=== PATIENT | male | born 1960 | race Caucasian/White ===

== ENCOUNTER 2019-01-07 09:30 | Day surgery (SDC) | payer BC ==
[2019-01-07] VITALS (8 sets, daily range): BP systolic 103–126; BP diastolic 65–73; PULSE 56–66; RESP 8–20; Ht 177.8 cm; Wt 69.3 kg
[~2019-01-07] VITALS: Ht 177.8 cm; Wt 69.3 kg
[~2019-01-07 09:30] MED LIST: ACETAMINOPHEN 500 MG TAB PO ONE; CEFAZOLIN 2 GM/50 ML (PMX) 50 ML IVPB SCH
[2019-01-07] MEDS ORDERED: ATOR40TA68 PO (10:28)
[2019-01-07] MEDS ORDERED: OMEG-158 PO (10:28)
[2019-01-07] MEDS ORDERED: ASPI81TA52 PO (10:28)
--- NOTE | 2019-01-07 10:35 | PREAC ---
Date/Time of Note Date/Time of Note DATE: 01/07/19 TIME: 10:32 Anesthesia Eval and Record Evaluation Time Pre-Procedure Interview DATE: 01/07/19 TIME: 10:32 Age 58 Sex male NPO: 8 hrs Preoperative diagnosis left thumb foreign body Planned procedure left thumb foreign body excision Past Medical History Past Medical History: Includes Cardio: Dyslipidemia Pulm: Smoking Hx, COPD Surgery & Anesthesia Issues Other issues Meds Anticoagulation: Yes Beta Soraya within 24 hr: No Reason Beta Soraya not given: Pt. not on B-Soraya Reported Medications Calhoun-3/Dha/Epa/Fish Oil (FISH OIL 1,000 MG SOFTGEL) 1 Each Capsule, 1 EACH PO DAILY, CAP 01/07/19 Aspirin (Low Dose Aspirin) 81 Mg Tablet.dr, 81 MG PO DAILY, #30 TAB 01/07/19 Atorvastatin* (Atorvastatin*) 40 Mg Tablet, 40 MG PO QHS, #30 TAB 01/07/19 Current Medications Cefazolin Sodium/ Dextrose 50 ml @ 100 mls/hr PRE-OP IVPB ; Start 01/07/19 at 06:00; Stop 01/07/19 at 15:00 Meds reviewed: Yes Allergies Coded Allergies: No Known Allergy (Unverified , 01/07/19) Allergies Reviewed: Yes Labs/Studies Labs Reviewed: Reviewed by anesthesiologist test: N/A Pre-procedure Exam Last vitals Vital Signs Date Temp Pulse Resp B/P (MAP) Pulse Ox O2 O2 Flow FiO2 Time Delivery Rate 01/07/19 97.4 63 16 103/65 98 09:40 (78) Airway: Adequate mouth opening, Adequate thyromental dist Mallampati: Mallampati II Teeth: Normal Lung: Normal Heart: Normal ASA Physical Status ASA physical status: 2 Emergency: None Planned Anesthetic General/MAC: MAC Planned Pain Management Local by surgeon Pre-operative Attestations Prior to commencing anesthesia and surgery, the patient was re-evaluated, there was verification of: *The patient's identity *The results of appropriate recent lab work and preoperative vital signs *The above evaluation not changing prior to induction *Anesthetic plan, risk benefits, alternative and complications discussed with patient/family; questions answered; patient/family understands, accepts and wishes to proceed. RUBIO THOMPSON Jan 07, 2019 10:35
--- NOTE | 2019-01-07 10:54 | HPN ---
Date/Time of Note Date/Time of Note DATE: 01/07/19 TIME: 10:54 Interval H&P Admission Note Pt. seen H&P reviewed: No system changes ANA CRONIN MD Jan 07, 2019 10:54
[2019-01-07] MEDS ORDERED: KETOROLAC 15 MG INJ IV PRN (11:00)
[2019-01-07] MEDS ORDERED: ONDANSETRON 4 MG INJ IV PRN (11:00)
[2019-01-07] MEDS ORDERED: METOCLOPRAMIDE 10 MG INJ IV PRN (11:00)
[2019-01-07] MEDS ORDERED: ALBUTEROL 0.083% (NEB) 2.5 MG/3 ML AMP HHN PRN (11:00)
[2019-01-07] MEDS ORDERED: BUPIVACAINE 0.25% (MPF) 30 ML INJ ONE (11:03)
[2019-01-07] MEDS ORDERED: LIDOCAINE 1% (MPF) 30 ML INJ ONE (11:03)
[2019-01-07] MEDS ORDERED: KETOROLAC 30 MG INJ ONE (11:18)
[2019-01-07] MEDS ORDERED: BUPIVACAINE 0.25% (MPF) 30 ML INJ INJ ONE (11:25)
[2019-01-07] MEDS ORDERED: LIDOCAINE 1% (MPF) 30 ML INJ INJ ONE (11:25)
--- NOTE | 2019-01-07 11:55 | OPR ---
Date/Time of Note Date/Time of Note DATE: 01/07/19 TIME: 11:47 Operative Report Procedure Date: Jan 07, 2019 Preoperative Diagnosis Left thumb foreign body Postoperative Diagnosis Left thumb foreign body Operation/Procedure Performed Left thumb foreign body removal Surgeon see signature line Transit Planning Director None Anesthesia Type: other (Loca) Tourniquet Time: 7 minutes Estimated Blood Loss: none Transfusion none Specimen foreign body and skin Grafts/Implants none Tubes/Drains none Complications none Pt Condition Post Procedure: stable Indications Patient is a 58-year-old iaozl-kubz-yxbivemt male who got a splinter stuck in his left thumb approximately 3 months ago. It is painful and swells. Radiographs demonstrated a possible foreign body along the volar aspect of the thumb. Ultrasound was not diagnostic. We discussed doing a foreign body removal. No guarantees were made that the foreign body could be found. Risks of surgery include but not limited to infection, pain, bleeding, neurovascular injury, stiffness, swelling, inabilit to remove the foreign body and other anesthesia related risks. Patient elects to proceed. Procedure Description Patient was identified in preoperative holding area. Upper extremity was marked. He is brought back to operating room. He is placed supine. A nonsterile tourniquet was applied left arm. Timeout was performed indicating correct patient site and procedure. 0.25% Marcaine and 1% lidocaine was injected into the left thumb for digital block. At the left arm was then prepped and draped in usual sterile fashion. Arm was examined with aid with Esmarch and tourniquet was elevated to 250 minutes mercury. There is a small, raised area over the pulp of the thumb just distal to the IP joint on the ulnar border which is thought to be the presumed entrance wound of the foreign body. A slightly oblique incision was marked out over this raised area. Skin was incised sharply with a scalpel. The ulnar digital neurovascular bundle was identified and retracted ulnarly. Blunt dissection was performed down through the septae and subcutaneous tissue down to the flexor tendon sheath. I did not find any foreign body within the depth of the wound. Just under the dermal layer, however, I did find what appeared to be a very small splinter measuring approximately 3-4 mm in length. This is embedded just under the dermal layer. This was removed and set aside for pathology. The hyperkeratotic skin was also ellipsed out. The wound was irrigated. The tourniquet was released. Hemostasis was achieved with bipolar cautery. Skin was closed with interrupted 4-0 nylon suture, horizontal mattress fashion. Xeroform, 4 x 4 gauze, Jennifer, and Coban dressing was applied. Patient tolerated the procedure well with no complications. He had brisk capillary refill in the fingers and all sponge and instrument counts were correct at the end of the case. ANA CRONIN MD Jan 07, 2019 11:55
--- NOTE | 2019-01-07 11:56 | SIPON ---
Date/Time of Note Date/Time of Note DATE: 01/07/19 TIME: 11:55 Operative Report Preoperative Diagnosis Left thumb foreign body Postoperative Diagnosis Left thumb foreign body Operation/Procedure Performed Left thumb foreign body removal Surgeon see signature line library technical assistant None Anesthesia: other Estimated blood loss: none Transfusion Required none Specimen foreign body and skin Grafts/Implants none Complications none ANA CRONIN MD Jan 07, 2019 11:56
--- NOTE | 2019-01-08 10:46 | PAC ---
Date/Time of Note Date/Time of Note DATE: 01/08/19 TIME: 10:46 Post-Anesthesia Notes Post-Anesthesia Note Last documented vital signs Vital Signs Date Temp Pulse Resp B/P (MAP) Pulse Ox O2 O2 Flow FiO2 Time Delivery Rate 01/07/19 97.4 60 16 124/70 99 Room Air 12:27 (88) Activity: WNL Respiratory function: WNL Cardiovascular function: WNL Mental status: Baseline Pain reasonably controlled: Yes Hydration appropriate: Yes Nausea/Vomiting absent: No JOHNNY PALENCIA MD Jan 08, 2019 10:46
== END 2019-01-07 12:48 | disposition home or self-care (01) ==
LOC: SDS 09:30
PROVIDERS: ATTEND Orthopaedic Surgery
DX: S60.352A Superficial foreign body of left thumb, initial encounter (principal); X58.XXXA Exposure to other specified factors, initial encounter; Y93.89 Activity, other specified; Y92.89 Other specified places as the place of occurrence of the external cause; Y99.8 Other external cause status; E78.5 Hyperlipidemia, unspecified; Z87.891 Personal history of nicotine dependence; J44.9 Chronic obstructive pulmonary disease, unspecified
CPT/HCPCS: 20520; 88300; J1885; Z7512; Z7610